=== PATIENT | male | born 2000 | race African-American/Black ===

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

== ENCOUNTER 2024-07-20 05:15 | Emergency (ER) | payer OTHER ==
[~2024-07-20] VITALS: Ht 185.4 cm; Wt 110.0 kg
[2024-07-20 05:18] VITALS: TEMP 98.4
[2024-07-20] MEDS: KETOROLAC TROMETHAMINE 30 MG/ML VIAL IM ONE (06:38)
[2024-07-20 09:00] VITALS: BP 135/74; PULSE 70; RESP 15; O2SAT 100
== END 2024-07-20 09:23 | disposition home or self-care (01) ==
LOC: EMS 05:15
DX: S52.122A Displaced fracture of head of left radius, initial encounter for closed fracture (principal); J45.909 Unspecified asthma, uncomplicated; Z98.890 Other specified postprocedural states; W19.XXXA Unspecified fall, initial encounter; Y93.89 Activity, other specified; Y92.89 Other specified places as the place of occurrence of the external cause; Y99.8 Other external cause status
CPT/HCPCS: 99284; 29105; 73080; 73090; 73110; 96372; J1885